=== PATIENT | male | born 1960 | race Caucasian/White ===

== ENCOUNTER 2019-08-01 20:01 | Observation (INO) ==
[2019-08-02 00:21] LABS: Basophils # 0.1 K/mcL (0.0-0.2); Basophils % 2.5 %; Eosinophils # 0.2 K/mcL (0.0-0.6); Eosinophils % 4.6 %; Hematocrit 38.7 % (37.5-50.1); Hemoglobin 12.7 g/dL (12.9-16.9); Immature Granulocytes % 0.4 % (0-4); Lymphocytes # 1.4 K/mcL (0.6-4.6); Lymphocytes % 26.1 %; Mean Corpuscular HGB Conc 32.8 g/dL (31.6-35.5); Mean Corpuscular Hemoglobin 27.6 pg (28.0-33.3); Mean Corpuscular Volume 84.1 fL (83.0-100.0); Mean Platelet Volume 9.2 fL (9.4-12.4); Monocytes # 0.4 K/mcL (0.0-1.3); Monocytes % 7.9 %; Platelet Count 208 K/mcL (140-400); Red Cell Distribution Width 16.3 % (11.5-14.5); Segmented Neutrophils % 58.5 %; White Blood Count 5.2 K/mcL (4.3-11.1)
[2019-08-02 00:23] LABS: Prothrombin Time 11.3 Seconds (9.4-12.1)
[2019-08-02 00:40] LABS: Alanine Aminotransferase 8 Units/L (7-52); Albumin 3.6 g/dL (3.5-5.7); Alkaline Phosphatase 102 Units/L (34-104); Aspartate Amino Transferase 13 Units/L (13-39); BUN/Creatinine Ratio 13 (6-26); Bilirubin,Total 0.6 mg/dL (0.3-1.0); Blood Urea Nitrogen 14 mg/dL (6-20); Calcium 9.4 mg/dL (8.6-10.3); Carbon Dioxide 31 mEq/L (23-29); Chloride 102 mEq/L (98-107); Globulin 3.7 g/dL (2.4-3.5); Glucose 89 mg/dL (70-105); Osmolality,Calculated 286 (280-300); Potassium 4.2 mEq/L (3.5-5.1); Sodium 138 mEq/L (136-145); Total Protein 7.3 g/dL (6.4-8.9); Troponin I < 0.03 ng/mL (< 0.04); eGFR For African Americans > 60 (> 60); eGFR For Non-African Americans > 60 (> 60)
[2019-08-02] MEDS: Nicotine 21 MG PATCH.TD24 TD SCH ×2 (01:07→09:14)
[2019-08-02] MEDS ORDERED: Naloxone 0.4 MG/ML INJ IVP PRN (01:18)
[2019-08-02 01:25] LABS: VBG HCO3 31 mEq/L (21-27); VBG PCO2 52 mmHg (41-51); VBG PH 7.39 pH Units (7.32-7.42); VBG PO2 128 mmHg (25-50)
[2019-08-02] MEDS ORDERED: Gabapentin 300 MG CAPSULE PO SCH (01:37)
[2019-08-02 02:51] LABS: % Iron Saturation 13 % (20-55); BUN/Creatinine Ratio 15 (6-26); Blood Urea Nitrogen 15 mg/dL (6-20); Calcium 8.8 mg/dL (8.6-10.3); Carbon Dioxide 30 mEq/L (23-29); Chloride 102 mEq/L (98-107); Cholesterol 128 mg/dL (< 200); Glucose 121 mg/dL (70-105); HDL Cholesterol 43 mg/dL (40-59); Iron 37 mcg/dL (65-175); LDL Cholesterol,Calculated 77 mg/dL (0-99); Osmolality,Calculated 288 (280-300); Phosphorous 3.9 mg/dL (2.7-4.5); Potassium 3.8 mEq/L (3.5-5.1); Sodium 138 mEq/L (136-145); Transferrin 209 mg/dL (203-362); Triglycerides 39 mg/dL (< 150); Troponin I < 0.03 ng/mL (< 0.04); eGFR For African Americans > 60 (> 60); eGFR For Non-African Americans > 60 (> 60)
[2019-08-02] MEDS: Gabapentin 300 MG CAPSULE PO SCH ×3 (02:52→20:19)
[2019-08-02 03:05] LABS: Basophils # 0.1 K/mcL (0.0-0.2); Basophils % 1.6 %; Eosinophils # 0.3 K/mcL (0.0-0.6); Eosinophils % 5.8 %; Hematocrit 34.2 % (37.5-50.1); Hemoglobin 11.3 g/dL (12.9-16.9); Immature Granulocytes % 0.4 % (0-4); Immature Reticulocyte % 11.5 % (11.0-38.0); Lymphocytes # 1.6 K/mcL (0.6-4.6); Lymphocytes % 27.4 %; Mean Corpuscular Hemoglobin 27.6 pg (28.0-33.3); Mean Corpuscular Volume 83.6 fL (83.0-100.0); Mean Platelet Volume 9.7 fL (9.4-12.4); Monocytes # 0.6 K/mcL (0.0-1.3); Monocytes % 9.7 %; Neutrophils # 3.1 K/mcL (1.6-8.9); Platelet Count 187 K/mcL (140-400); Red Blood Count 4.09 M/mcL (4.19-5.50); Red Cell Distribution Width 16.2 % (11.5-14.5); Retculocyte # 0.03 M/mcL (0.05-0.10); Reticulocyte % 0.8 % (1.6-2.8); Segmented Neutrophils % 55.1 %; White Blood Count 5.7 K/mcL (4.3-11.1)
[2019-08-02 03:10] LABS: Ferritin 93 ng/mL (20-250)
[2019-08-02] MEDS ORDERED: Cefepime HCl 1,000 MG in 0.9 % Sodium Chloride Mini Bag 100 ML IVPB SCH (04:00)
[2019-08-02] MEDS ORDERED: MetroNIDAZOLE 500 MG/100 ML 500 MG/100 ML BAG IVPB SCH (04:00)
[2019-08-02] MEDS ORDERED: Vancomycin (wt based) 1,000 MG VIAL IVPB SCH (04:00)
[2019-08-02] MEDS ORDERED: Cefepime HCl 1,000 MG in Water for inj. (sterile) 10 ML IVPB SCH (04:15)
[2019-08-02 05:42] LABS: Bilirubin,Urine Negative (Negative); Blood,Urine Negative (Negative); Clarity,Urine Clear (Clear); Color,Urine Yellow (Yellow); Glucose,Urine (UA) Normal (Normal); Ketones,Urine Negative (Negative); Leukocyte Esterase,Urine Negative (Negative); Nitrite,Urine Negative (Negative); PH,Urine 7.5 pH Units (5.0-8.0); Protein,Urine Negative (Neg-Trace); Urobilinogen,Urine Normal (Normal)
[2019-08-02] MEDS: *HR* Heparin 5,000 UNIT/ML VIAL SQ SCH ×2 (05:45→18:14)
[2019-08-02] MEDS: Acetaminophen 325 MG TABLET PO PRN (06:42)
[2019-08-02 07:57] LABS: Estimated Average Glucose 123 mg/dl
[2019-08-02 08:04] LABS: Folate 14.4 ng/mL (3.0-16.0)
[2019-08-02] MEDS: Cefepime HCl 1,000 MG in 0.9 % Sodium Chloride Mini Bag 100 ML IVPB SCH ×2 (09:19→15:45)
[2019-08-02] MEDS: MetroNIDAZOLE 500 MG/100 ML 500 MG/100 ML BAG IVPB SCH ×2 (09:21→15:48)
[2019-08-02] MEDS ORDERED: *HR* OxyCODONE Immed Rel 5 MG TABLET PO PRN (11:44)
[2019-08-02] MEDS ORDERED: Ipratropium Neb 0.5 MG NEBULIZER IH PRN (11:44)
[2019-08-02] MEDS ORDERED: Ondansetron 4 MG/2 ML VIAL IVP ONE (11:44)
[2019-08-02] MEDS ORDERED: Albuterol 2.5 MG/3 ML NEBULIZER IH PRN (11:44)
[2019-08-02] MEDS ORDERED: *HR* Rocuronium Bromide 50 MG/5 ML VIAL ONE (11:57)
[2019-08-02] MEDS ORDERED: Ondansetron 4 MG/2 ML VIAL ONE (11:57)
[2019-08-02] MEDS ORDERED: *HR* FentaNYL (PF) 100 MCG/2 ML VIAL ONE (11:57)
[2019-08-02] MEDS ORDERED: *HR* Midazolam HCl 2 MG/2 ML VIAL ONE (11:57)
[2019-08-02] MEDS ORDERED: Dexamethasone 4 MG/ML VIAL ONE (11:57)
[2019-08-02] MEDS ORDERED: Lidocaine -MPF 4% 5 ML AMPUL ONE (11:57)
[2019-08-02] MEDS ORDERED: *HR* Succinylcholine 200 MG/10 ML VIAL IVP ONE (11:57)
[2019-08-02] MEDS ORDERED: Lidocaine -MPF 2% 2 ML VIAL ONE (11:57)
[2019-08-02] MEDS ORDERED: *HR* Propofol 200 MG/20 ML VIAL IVP ONE (11:57)
[2019-08-02] MEDS: *HR* Buprenorphine HCl 2 MG SUBLINGUAL TABLET SL SCH ×2 (15:16→20:20)
[2019-08-02] MEDS ORDERED: Azithromycin 250 MG TABLET PO SCH (17:15)
[2019-08-02 19:52] LABS: Appearance of Body Fluid Cloudy (Clear); Volume of Body Fluid 17 mL
[2019-08-02 20:05] LABS: Appearance of Body Fluid Cloudy (Clear); Volume of Body Fluid 24 mL
[2019-08-02] MEDS: Budesonide/Formoterol 160/4.5 1 PUFF INH IH SCH (22:04)
[2019-08-02] MEDS: Ipratropium/Albuterol Neb 3 ML IH SCH (22:05)
[2019-08-02] MEDS ORDERED: Aminoglycoside Consult 1 EACH MC ONE (22:18)
[2019-08-03] MEDS: Acetaminophen 325 MG TABLET PO PRN (00:03)
[2019-08-03] MEDS: methylPREDNISolone 125 MG/2 ML VIAL IVP SCH ×2 (00:04→08:27)
[2019-08-03] MEDS: Cefepime HCl 1,000 MG in 0.9 % Sodium Chloride Mini Bag 100 ML IVPB SCH ×2 (00:06→10:00)
[2019-08-03] MEDS: MetroNIDAZOLE 500 MG/100 ML 500 MG/100 ML BAG IVPB SCH ×2 (00:50→08:26)
[2019-08-03] MEDS: Ipratropium/Albuterol Neb 3 ML IH SCH ×2 (03:34→10:31)
[2019-08-03 04:11] LABS: Basophils % 0.4 %; Hematocrit 40.7 % (37.5-50.1); Hemoglobin 12.8 g/dL (12.9-16.9); Immature Granulocytes % 0.3 % (0-4); Lymphocytes # 0.8 K/mcL (0.6-4.6); Lymphocytes % 7.4 %; Mean Corpuscular HGB Conc 31.4 g/dL (31.6-35.5); Mean Corpuscular Hemoglobin 27.9 pg (28.0-33.3); Mean Corpuscular Volume 88.9 fL (83.0-100.0); Mean Platelet Volume 9.8 fL (9.4-12.4); Monocytes # 0.1 K/mcL (0.0-1.3); Neutrophils # 9.2 K/mcL (1.6-8.9); Platelet Count 196 K/mcL (140-400); Red Blood Count 4.58 M/mcL (4.19-5.50); Red Cell Distribution Width 15.9 % (11.5-14.5); Segmented Neutrophils % 90.9 %
[2019-08-03 04:32] LABS: BUN/Creatinine Ratio 17 (6-26); Blood Urea Nitrogen 18 mg/dL (6-20); Calcium 9.4 mg/dL (8.6-10.3); Carbon Dioxide 29 mEq/L (23-29); Chloride 104 mEq/L (98-107); Glucose 124 mg/dL (70-105); Osmolality,Calculated 291 (280-300); Sodium 139 mEq/L (136-145); White Blood Count 10.1 K/mcL (4.3-11.1); eGFR For African Americans > 60 (> 60); eGFR For Non-African Americans > 60 (> 60)
[2019-08-03] MEDS: *HR* Heparin 5,000 UNIT/ML VIAL SQ SCH (05:30)
[2019-08-03 07:06] VITALS: BP 118/71
[2019-08-03] MEDS: Gabapentin 300 MG CAPSULE PO SCH (08:28)
[2019-08-03] MEDS: *HR* Buprenorphine HCl 2 MG SUBLINGUAL TABLET SL SCH (08:29)
[2019-08-03] MEDS: Nicotine 21 MG PATCH.TD24 TD SCH (08:29)
[2019-08-03] MEDS ORDERED: Azithromycin 250 MG TABLET PO SCH (09:00)
[2019-08-03] MEDS: Budesonide/Formoterol 160/4.5 1 PUFF INH IH SCH (10:31)
== END 2019-08-03 13:10 | disposition home or self-care (01) ==
LOC: 2ANU → SUATTDRO 22:17
PROVIDERS: ADMIT Internal Medicine; ATTEND Internal Medicine

== ENCOUNTER 2020-12-15 16:30 | Inpatient (IN) ==
[2020-12-15] MEDS ORDERED: *HR* HYDROcodone/Acet 5/325 mg TABLET PO PRN (17:18)
[2020-12-15] MEDS ORDERED: Naloxone 0.4 MG/ML INJ IVP PRN (17:18)
[2020-12-15] MEDS ORDERED: Acetaminophen 325 MG TABLET PO PRN (17:18)
[2020-12-15] MEDS ORDERED: Perflutren Lipid Microsphere 1.3 ML in 0.9 % Sodium Chloride 8.7 ML IVP PRN (17:23)
[2020-12-15] MEDS ORDERED: Azithromycin 500 MG in 0.9 % Sodium Chloride 250 ML IVPB ONE (17:24)
[2020-12-15] MEDS: 0.9 % Sodium Chloride 1,000 ML IVC SCH (17:41)
[2020-12-15] MEDS ORDERED: Amiodarone Premix 360 MG/200 ML BAG IVC ONE ×2 (17:53→19:22)
[2020-12-15] MEDS ORDERED: Levalbuterol Neb 1.25 MG/3 ML IH PRN (17:55)
[2020-12-15] MEDS: cefTRIAXone 2,000 MG in Water for inj. (sterile) 20 ML IVP SCH (17:57)
[2020-12-15] MEDS ORDERED: Vancomycin (wt based) 1,000 MG VIAL IVPB SCH (18:00)
[2020-12-15] MEDS ORDERED: Vancomycin 1,500 MG/265 ML IV.SOLN IVPB ONE (18:11)
[2020-12-15] MEDS ORDERED: *HR* Heparin 5,000 UNIT/ML VIAL IVP PRN ×2 (18:15)
[2020-12-15] MEDS ORDERED: *HR* Heparin 5,000 UNIT/ML VIAL IVP ONE (18:15)
[2020-12-15] MEDS ORDERED: *HR* Metoprolol 5 MG/5 ML VIAL IVP PRN (18:15)
[2020-12-15] MEDS: MethylPREDNISolone 40 MG/ML VIAL IVP SCH (18:17)
[2020-12-15 18:27] LABS: Basophils # 0.1 K/mcL (0.0-0.2); Basophils % 1.4 %; Eosinophils # 0.1 K/mcL (0.0-0.6); Eosinophils % 1.5 %; Hematocrit 36.6 % (37.5-50.1); Hemoglobin 11.7 g/dL (12.9-16.9); Immature Granulocytes % 0.3 % (0-4); Lymphocytes # 0.9 K/mcL (0.6-4.6); Lymphocytes % 13.1 %; Mean Corpuscular Hemoglobin 29.8 pg (28.0-33.3); Mean Corpuscular Volume 93.1 fL (83.0-100.0); Mean Platelet Volume 9.2 fL (9.4-12.4); Monocytes # 0.8 K/mcL (0.0-1.3); Monocytes % 10.7 %; Neutrophils # 5.3 K/mcL (1.6-8.9); Platelet Count 246 K/mcL (140-400); Red Blood Count 3.93 M/mcL (4.19-5.50); Red Cell Distribution Width 13.2 % (11.5-14.5); White Blood Count 7.2 K/mcL (4.3-11.1)
[2020-12-15 18:34] LABS: Heparin anti-factor XA UFH < 0.04 IU/mL (0.30-0.70); INR 1.4; Prothrombin Time 16.2 Seconds (9.4-12.1)
[2020-12-15 18:37] LABS: Activated Partial Thrombo Time 27.1 Seconds (26.0-36.0)
[2020-12-15 18:51] LABS: Alanine Aminotransferase 16 Units/L (7-52); Albumin 3.5 g/dL (3.5-5.7); Albumin/Globulin Ratio 0.9 (1.1-2.2); Alkaline Phosphatase 134 Units/L (34-104); Aspartate Amino Transferase 14 Units/L (13-39); BUN/Creatinine Ratio 11 (6-26); Bilirubin,Direct 0.1 mg/dL (0.0-0.2); Bilirubin,Indirect 0.3 mg/dL (0.0-1.0); Bilirubin,Total 0.4 mg/dL (0.3-1.0); Blood Urea Nitrogen 11 mg/dL (6-20); Calcium 8.8 mg/dL (8.6-10.3); Carbon Dioxide 34 mEq/L (23-29); Chloride 96 mEq/L (98-107); Globulin 3.7 g/dL (2.4-3.5); Glucose 112 mg/dL (70-105); Magnesium 2.1 mg/dL (1.6-2.6); Osmolality,Calculated 284 (280-300); Phosphorous 2.8 mg/dL (2.7-4.5); Potassium 3.3 mEq/L (3.5-5.1); Sodium 137 mEq/L (136-145); Total Protein 7.2 g/dL (6.4-8.9); eGFR For African Americans > 60 (> 60); eGFR For Non-African Americans > 60 (> 60)
[2020-12-15 19:04] LABS: Thyroid Stimulating Hormone 1.136 mcIU/mL (0.340-5.600)
[2020-12-15] MEDS: Amiodarone Premix 360 MG/200 ML BAG IVC SCH (19:16)
[2020-12-15] MEDS: Heparin 25,000UNIT/250ML 1/2NS 25,000 UNIT/250 ML IV.SOLN IVC SCH (19:25)
[2020-12-16] MEDS: 0.9 % Sodium Chloride 1,000 ML IVC SCH (00:13)
[2020-12-16] MEDS ORDERED: Ringers Solution, Lactated 500 ML IVC ONE ×2 (00:50→02:52)
[2020-12-16 01:47] LABS: Basophils % 0.4 %; Hematocrit 41.2 % (37.5-50.1); Hemoglobin 12.9 g/dL (12.9-16.9); Immature Granulocytes % 0.2 % (0-4); Lymphocytes # 0.5 K/mcL (0.6-4.6); Lymphocytes % 6.4 %; Mean Corpuscular HGB Conc 31.3 g/dL (31.6-35.5); Mean Corpuscular Hemoglobin 29.5 pg (28.0-33.3); Mean Corpuscular Volume 94.3 fL (83.0-100.0); Mean Platelet Volume 9.5 fL (9.4-12.4); Monocytes # 0.2 K/mcL (0.0-1.3); Monocytes % 2.5 %; Neutrophils # 7.4 K/mcL (1.6-8.9); Platelet Count 244 K/mcL (140-400); Red Blood Count 4.37 M/mcL (4.19-5.50); Red Cell Distribution Width 13.2 % (11.5-14.5); Segmented Neutrophils % 90.5 %; White Blood Count 8.1 K/mcL (4.3-11.1)
[2020-12-16 01:53] LABS: VBG Ionized Calcium 1.14 mmol/L (1.15-1.35)
[2020-12-16 02:10] LABS: Troponin I < 0.03 ng/mL (< 0.04)
[2020-12-16] MEDS ORDERED: *HR* Metoprolol 5 MG/5 ML VIAL IVP ONE (02:27)
[2020-12-16] MEDS: MethylPREDNISolone 40 MG/ML VIAL IVP SCH ×2 (05:57→18:42)
[2020-12-16] MEDS: Vancomycin 1,500 MG/265 ML IV.SOLN IVPB SCH ×2 (05:57→18:40)
[2020-12-16 05:59] LABS: Alanine Aminotransferase 17 Units/L (7-52); Albumin 3.7 g/dL (3.5-5.7); Albumin/Globulin Ratio 0.9 (1.1-2.2); Alkaline Phosphatase 152 Units/L (34-104); Aspartate Amino Transferase 19 Units/L (13-39); BUN/Creatinine Ratio 12 (6-26); Bilirubin,Total 0.3 mg/dL (0.3-1.0); Blood Urea Nitrogen 12 mg/dL (6-20); Calcium 9.1 mg/dL (8.6-10.3); Chloride 99 mEq/L (98-107); Globulin 4.2 g/dL (2.4-3.5); Glucose 157 mg/dL (70-105); Magnesium 2.2 mg/dL (1.6-2.6); Osmolality,Calculated 287 (280-300); Phosphorous 2.1 mg/dL (2.7-4.5); Potassium 3.4 mEq/L (3.5-5.1); Sodium 137 mEq/L (136-145); Total Protein 7.9 g/dL (6.4-8.9); eGFR For African Americans > 60 (> 60); eGFR For Non-African Americans > 60 (> 60)
[2020-12-16] MEDS: Amiodarone Premix 360 MG/200 ML BAG IVC SCH ×2 (06:14→19:20)
[2020-12-16 06:17] LABS: Carbon Dioxide 26 mEq/L (23-29)
[2020-12-16] MEDS ORDERED: Potassium Chloride Elixir 20 MEQ/15 ML UDC PO ONE (06:27)
[2020-12-16] MEDS ORDERED: *HR* Heparin 5,000 UNIT/ML VIAL SQ SCH (07:00)
[2020-12-16] MEDS: Calcium Gluconate 1gm/50mL 1 GM/50 ML BAG IVPB SCH ×2 (07:45→08:57)
[2020-12-16] MEDS: Gabapentin 300 MG CAPSULE PO SCH ×2 (07:45→21:12)
[2020-12-16] MEDS ORDERED: BUPRENORPHINE HCL SL SCH (09:00)
[2020-12-16] MEDS ORDERED: NALOXONE HCL SL SCH (09:00)
[2020-12-16] MEDS ORDERED: Furosemide 40 MG/4 ML VIAL IVP ONE (09:53)
[2020-12-16] MEDS: *HR* Buprenorphine HCl 8 MG TAB.SUBL SL SCH ×4 (09:58→21:12)
[2020-12-16] MEDS: Pantoprazole 40 MG VIAL IVP SCH ×2 (10:20→21:13)
[2020-12-16] MEDS ORDERED: *HR* Digoxin 0.5 MG/2 ML AMPUL IVP ONE (10:25)
[2020-12-16] MEDS: Nicotine 21 MG PATCH.TD24 TD SCH (11:06)
[2020-12-16] MEDS: Aspirin Enteric Coated 81 MG Tablet PO SCH (11:06)
[2020-12-16] MEDS: Sennosides/Docusate Sodium TABLET PO SCH ×2 (11:07→20:11)
[2020-12-16] MEDS: Heparin 25,000UNIT/250ML 1/2NS 25,000 UNIT/250 ML IV.SOLN IVC SCH (11:10)
[2020-12-16 13:05] LABS: BUN/Creatinine Ratio 12 (6-26); Blood Urea Nitrogen 11 mg/dL (6-20); Calcium 9.7 mg/dL (8.6-10.3); Carbon Dioxide 27 mEq/L (23-29); Chloride 99 mEq/L (98-107); Glucose 136 mg/dL (70-105); Osmolality,Calculated 283 (280-300); Phosphorous 2.6 mg/dL (2.7-4.5); Potassium 3.7 mEq/L (3.5-5.1); Sodium 136 mEq/L (136-145); eGFR For African Americans > 60 (> 60); eGFR For Non-African Americans > 60 (> 60)
[2020-12-16] MEDS: DilTIAZem 50 MG/50 ML IV.SOLN IVC SCH ×3 (15:08→22:04)
[2020-12-16] MEDS: cefTRIAXone 2,000 MG in Water for inj. (sterile) 20 ML IVP SCH (18:40)
[2020-12-16] MEDS: *HR* Digoxin 0.5 MG/2 ML AMPUL IVP SCH (18:42)
[2020-12-16] MEDS ORDERED: Dexmedetomidine HCl 400 MCG/100 ML MLS IVC SCH (19:00)
[2020-12-16] MEDS: Budesonide/Formoterol 160/4.5 1 PUFF INH IH SCH (21:16)
[2020-12-16] MEDS ORDERED: polyethylene glycoL 3350 17 GM POWD.PACK PO PRN (23:59)
[2020-12-17] MEDS: DilTIAZem 50 MG/50 ML IV.SOLN IVC SCH (01:56)
[2020-12-17] MEDS: *HR* Digoxin 0.5 MG/2 ML AMPUL IVP SCH (02:34)
[2020-12-17] MEDS: Heparin 25,000UNIT/250ML 1/2NS 25,000 UNIT/250 ML IV.SOLN IVC SCH ×3 (03:55→22:47)
[2020-12-17 06:09] LABS: BUN/Creatinine Ratio 18 (6-26); Blood Urea Nitrogen 17 mg/dL (6-20); Calcium 8.9 mg/dL (8.6-10.3); Carbon Dioxide 29 mEq/L (23-29); Chloride 101 mEq/L (98-107); Glucose 160 mg/dL (70-105); Osmolality,Calculated 287 (280-300); Sodium 136 mEq/L (136-145); Vancomycin,Trough 16 mcg/mL (5-10); eGFR For African Americans > 60 (> 60); eGFR For Non-African Americans > 60 (> 60)
[2020-12-17] MEDS: MethylPREDNISolone 40 MG/ML VIAL IVP SCH (06:49)
[2020-12-17] MEDS: Budesonide/Formoterol 160/4.5 1 PUFF INH IH SCH ×2 (07:46→19:49)
[2020-12-17] MEDS: *HR* Buprenorphine HCl 8 MG TAB.SUBL SL SCH ×4 (08:13→19:52)
[2020-12-17] MEDS: Aspirin Enteric Coated 81 MG Tablet PO SCH (08:13)
[2020-12-17] MEDS: Gabapentin 300 MG CAPSULE PO SCH ×2 (08:14→19:52)
[2020-12-17] MEDS: Sennosides/Docusate Sodium TABLET PO SCH ×2 (08:14→19:51)
[2020-12-17] MEDS: Pantoprazole 40 MG VIAL IVP SCH ×2 (08:14→19:52)
[2020-12-17] MEDS: Nicotine 21 MG PATCH.TD24 TD SCH (08:14)
[2020-12-17] MEDS: Vancomycin 1,500 MG/265 ML IV.SOLN IVPB SCH (08:16)
[2020-12-17] MEDS: Amiodarone Premix 360 MG/200 ML BAG IVC SCH (08:26)
[2020-12-17] MEDS ORDERED: *HR* Digoxin 0.125 MG TABLET PO SCH (09:00)
[2020-12-17] MEDS ORDERED: *HR* Amiodarone 200 MG TABLET PO SCH (10:00)
[2020-12-17] MEDS: Furosemide 20 MG TABLET PO SCH ×3 (10:09→18:02)
[2020-12-17] MEDS ORDERED: *HR* HYDROcodone/Acet 5/325 mg TABLET PO PRN (10:10)
[2020-12-17] MEDS ORDERED: Acetaminophen 325 MG TABLET PO PRN (10:10)
[2020-12-17] MEDS ORDERED: Naloxone 0.4 MG/ML INJ IVP PRN (10:10)
[2020-12-17] MEDS ORDERED: polyethylene glycoL 3350 17 GM POWD.PACK PO PRN (10:10)
[2020-12-17] MEDS ORDERED: Levalbuterol Neb 1.25 MG/3 ML IH PRN (10:10)
[2020-12-17] MEDS ORDERED: *HR* Heparin 5,000 UNIT/ML VIAL IVP PRN ×2 (10:10)
[2020-12-17] MEDS: *HR* Metoprolol 5 MG/5 ML VIAL IVP PRN (13:10)
[2020-12-17 13:52] LABS: VBG Ionized Calcium 1.16 mmol/L (1.15-1.35)
[2020-12-17] MEDS ORDERED: *HR* Metoprolol 5 MG/5 ML VIAL IVP ONE (14:04)
[2020-12-17 15:01] LABS: BUN/Creatinine Ratio 17 (6-26); Blood Urea Nitrogen 17 mg/dL (6-20); Calcium 9.3 mg/dL (8.6-10.3); Carbon Dioxide 28 mEq/L (23-29); Chloride 98 mEq/L (98-107); Glucose 162 mg/dL (70-105); Magnesium 2.2 mg/dL (1.6-2.6); Osmolality,Calculated 285 (280-300); Phosphorous 3.1 mg/dL (2.7-4.5); Sodium 135 mEq/L (136-145); eGFR For African Americans > 60 (> 60); eGFR For Non-African Americans > 60 (> 60)
[2020-12-17] MEDS: Dexmedetomidine HCl 400 MCG/100 ML MLS IVC SCH ×2 (15:45→18:07)
[2020-12-17] MEDS: *HR* Amiodarone 200 MG TABLET PO SCH (19:52)
[2020-12-18] MEDS: Heparin 25,000UNIT/250ML 1/2NS 25,000 UNIT/250 ML IV.SOLN IVC SCH ×2 (02:21→11:55)
[2020-12-18] MEDS: Dexmedetomidine HCl 400 MCG/100 ML MLS IVC SCH ×2 (03:51→13:46)
[2020-12-18 05:29] LABS: VBG Ionized Calcium 1.16 mmol/L (1.15-1.35)
[2020-12-18 05:53] LABS: Alanine Aminotransferase 14 Units/L (7-52); Albumin/Globulin Ratio 0.9 (1.1-2.2); Alkaline Phosphatase 111 Units/L (34-104); Aspartate Amino Transferase 11 Units/L (13-39); BUN/Creatinine Ratio 20 (6-26); Bilirubin,Total 0.3 mg/dL (0.3-1.0); Blood Urea Nitrogen 21 mg/dL (6-20); Carbon Dioxide 29 mEq/L (23-29); Chloride 103 mEq/L (98-107); Globulin 3.5 g/dL (2.4-3.5); Glucose 148 mg/dL (70-105); Magnesium 2.4 mg/dL (1.6-2.6); Osmolality,Calculated 292 (280-300); Phosphorous 3.5 mg/dL (2.7-4.5); Potassium 4.3 mEq/L (3.5-5.1); Sodium 138 mEq/L (136-145); Total Protein 6.5 g/dL (6.4-8.9); eGFR For African Americans > 60 (> 60); eGFR For Non-African Americans > 60 (> 60)
[2020-12-18] MEDS: Budesonide/Formoterol 160/4.5 1 PUFF INH IH SCH ×2 (07:43→21:15)
[2020-12-18] MEDS: Nicotine 21 MG PATCH.TD24 TD SCH (07:53)
[2020-12-18] MEDS: *HR* Buprenorphine HCl 8 MG TAB.SUBL SL SCH ×4 (07:54→20:47)
[2020-12-18] MEDS: Aspirin Enteric Coated 81 MG Tablet PO SCH (07:54)
[2020-12-18] MEDS: Gabapentin 300 MG CAPSULE PO SCH ×2 (07:54→20:47)
[2020-12-18] MEDS: *HR* Digoxin 0.125 MG TABLET PO SCH (07:54)
[2020-12-18] MEDS: Sennosides/Docusate Sodium TABLET PO SCH ×2 (07:54→20:47)
[2020-12-18] MEDS: MethylPREDNISolone 40 MG/ML VIAL IVP SCH (07:55)
[2020-12-18] MEDS: *HR* Amiodarone 200 MG TABLET PO SCH ×2 (07:55→20:47)
[2020-12-18] MEDS: Pantoprazole 40 MG VIAL IVP SCH ×2 (07:56→20:48)
[2020-12-18] MEDS ORDERED: Perflutren Lipid Microsphere 1.3 ML in 0.9 % Sodium Chloride 8.7 ML IVP PRN (08:37)
[2020-12-18] MEDS: Metoprolol XL (24 HR) Succ 50 MG TAB.ER.24H PO SCH ×2 (11:57→20:47)
[2020-12-18] MEDS: Furosemide 20 MG TABLET PO SCH (17:09)
[2020-12-19] MEDS: Dexmedetomidine HCl 400 MCG/100 ML MLS IVC SCH
[2020-12-19 01:45] LABS: Basophils % 0.1 %; Hematocrit 38.2 % (37.5-50.1); Hemoglobin 12.4 g/dL (12.9-16.9); Immature Granulocytes % 0.3 % (0-4); Lymphocytes # 0.9 K/mcL (0.6-4.6); Lymphocytes % 9.8 %; Mean Corpuscular HGB Conc 32.5 g/dL (31.6-35.5); Mean Corpuscular Hemoglobin 29.5 pg (28.0-33.3); Mean Corpuscular Volume 90.7 fL (83.0-100.0); Mean Platelet Volume 9.8 fL (9.4-12.4); Monocytes # 0.6 K/mcL (0.0-1.3); Monocytes % 7.3 %; Neutrophils # 7.2 K/mcL (1.6-8.9); Platelet Count 234 K/mcL (140-400); Red Blood Count 4.21 M/mcL (4.19-5.50); Segmented Neutrophils % 82.5 %; White Blood Count 8.7 K/mcL (4.3-11.1)
[2020-12-19 01:53] LABS: BUN/Creatinine Ratio 20 (6-26); Blood Urea Nitrogen 21 mg/dL (6-20); Carbon Dioxide 27 mEq/L (23-29); Chloride 101 mEq/L (98-107); Glucose 144 mg/dL (70-105); Magnesium 2.4 mg/dL (1.6-2.6); Osmolality,Calculated 284 (280-300); Potassium 4.6 mEq/L (3.5-5.1); Sodium 134 mEq/L (136-145); eGFR For African Americans > 60 (> 60); eGFR For Non-African Americans > 60 (> 60)
[2020-12-19] MEDS: Heparin 25,000UNIT/250ML 1/2NS 25,000 UNIT/250 ML IV.SOLN IVC SCH ×2 (05:57→20:29)
[2020-12-19] MEDS: Budesonide/Formoterol 160/4.5 1 PUFF INH IH SCH ×2 (07:41→20:09)
[2020-12-19] MEDS: Pantoprazole 40 MG VIAL IVP SCH ×2 (08:11→20:09)
[2020-12-19] MEDS: Metoprolol XL (24 HR) Succ 50 MG TAB.ER.24H PO SCH ×2 (08:12→19:53)
[2020-12-19] MEDS: *HR* Amiodarone 200 MG TABLET PO SCH ×2 (08:12→19:56)
[2020-12-19] MEDS: MethylPREDNISolone 40 MG/ML VIAL IVP SCH (08:12)
[2020-12-19] MEDS: Sennosides/Docusate Sodium TABLET PO SCH ×2 (08:12→19:53)
[2020-12-19] MEDS: Aspirin Enteric Coated 81 MG Tablet PO SCH (08:12)
[2020-12-19] MEDS: Furosemide 20 MG TABLET PO SCH ×2 (08:12→16:50)
[2020-12-19] MEDS: *HR* Digoxin 0.125 MG TABLET PO SCH (08:12)
[2020-12-19] MEDS: Gabapentin 300 MG CAPSULE PO SCH ×2 (08:12→19:54)
[2020-12-19] MEDS: Nicotine 21 MG PATCH.TD24 TD SCH (08:13)
[2020-12-19] MEDS: *HR* Buprenorphine HCl 8 MG TAB.SUBL SL SCH (08:13)
[2020-12-19] MEDS: *HR* Buprenorphine HCl 2 MG SUBLINGUAL TABLET SL SCH ×3 (13:22→19:52)
[2020-12-19] MEDS: *HR* Metoprolol 5 MG/5 ML VIAL IVP PRN ×4 (15:01→20:35)
[2020-12-19] MEDS ORDERED: Amiodarone Premix 360 MG/200 ML BAG IVC ONE (15:20)
[2020-12-19] MEDS ORDERED: *HR* Metoprolol 5 MG/5 ML VIAL IVP PRN (20:18)
[2020-12-19] MEDS: Amiodarone Premix 360 MG/200 ML BAG IVC SCH (21:25)
[2020-12-20] MEDS ORDERED: Metoprolol XL (24 HR) Succ 50 MG TAB.ER.24H PO ONE (00:54)
[2020-12-20 06:46] LABS: Basophils % 0.3 %; Eosinophils % 0.2 %; Hematocrit 43.2 % (37.5-50.1); Hemoglobin 13.8 g/dL (12.9-16.9); Immature Granulocytes % 0.4 % (0-4); Lymphocytes # 1.6 K/mcL (0.6-4.6); Lymphocytes % 18.1 %; Mean Corpuscular HGB Conc 31.9 g/dL (31.6-35.5); Mean Corpuscular Hemoglobin 29.6 pg (28.0-33.3); Mean Corpuscular Volume 92.5 fL (83.0-100.0); Mean Platelet Volume 10.6 fL (9.4-12.4); Monocytes # 0.9 K/mcL (0.0-1.3); Monocytes % 10.3 %; Neutrophils # 6.4 K/mcL (1.6-8.9); Platelet Count 205 K/mcL (140-400); Red Blood Count 4.67 M/mcL (4.19-5.50); Red Cell Distribution Width 13.2 % (11.5-14.5); Segmented Neutrophils % 70.7 %; White Blood Count 9.1 K/mcL (4.3-11.1)
[2020-12-20 07:05] LABS: BUN/Creatinine Ratio 19 (6-26); Blood Urea Nitrogen 23 mg/dL (6-20); Calcium 9.4 mg/dL (8.6-10.3); Carbon Dioxide 31 mEq/L (23-29); Chloride 100 mEq/L (98-107); Digoxin 0.8 ng/mL (0.8-2.0); Glucose 94 mg/dL (70-105); Magnesium 2.5 mg/dL (1.6-2.6); Osmolality,Calculated 289 (280-300); Potassium 4.3 mEq/L (3.5-5.1); Sodium 138 mEq/L (136-145); eGFR For African Americans > 60 (> 60); eGFR For Non-African Americans > 60 (> 60)
[2020-12-20] MEDS: Budesonide/Formoterol 160/4.5 1 PUFF INH IH SCH ×2 (07:38→20:17)
[2020-12-20] MEDS: Gabapentin 300 MG CAPSULE PO SCH ×2 (07:45→20:48)
[2020-12-20] MEDS: Aspirin Enteric Coated 81 MG Tablet PO SCH (07:45)
[2020-12-20] MEDS: *HR* Digoxin 0.125 MG TABLET PO SCH (07:45)
[2020-12-20] MEDS: Sennosides/Docusate Sodium TABLET PO SCH ×2 (07:45→20:46)
[2020-12-20] MEDS: Furosemide 20 MG TABLET PO SCH ×2 (07:45→16:48)
[2020-12-20] MEDS: *HR* Buprenorphine HCl 2 MG SUBLINGUAL TABLET SL SCH ×4 (07:46→20:48)
[2020-12-20] MEDS: *HR* Amiodarone 200 MG TABLET PO SCH ×2 (07:46→20:46)
[2020-12-20] MEDS: Metoprolol XL (24 HR) Succ 50 MG TAB.ER.24H PO SCH ×2 (07:46→20:47)
[2020-12-20] MEDS: predniSONE 20 MG TABLET PO SCH (07:46)
[2020-12-20] MEDS: Nicotine 21 MG PATCH.TD24 TD SCH (07:47)
[2020-12-20] MEDS: Amiodarone Premix 360 MG/200 ML BAG IVC SCH (09:17)
[2020-12-20] MEDS: Heparin 25,000UNIT/250ML 1/2NS 25,000 UNIT/250 ML IV.SOLN IVC SCH (12:43)
[2020-12-20] MEDS ORDERED: 0.9 % Sodium Chloride 500 ML IVC ONE (13:27)
[2020-12-20] MEDS ORDERED: Lidocaine Viscous Oral Soln 15 ML SOLUTION MM PRN (13:27)
[2020-12-20] MEDS: *HR* Midazolam HCl 5 MG/5 ML VIAL IVP PRN ×3 (13:50→14:00)
[2020-12-20] MEDS: *HR* FentaNYL (PF) 100 MCG/2 ML VIAL IVP PRN ×2 (13:50→14:00)
[2020-12-21 01:45] LABS: BUN/Creatinine Ratio 20 (6-26); Blood Urea Nitrogen 24 mg/dL (6-20); Calcium 9.7 mg/dL (8.6-10.3); Carbon Dioxide 33 mEq/L (23-29); Chloride 96 mEq/L (98-107); Glucose 99 mg/dL (70-105); Osmolality,Calculated 286 (280-300); Potassium 4.3 mEq/L (3.5-5.1); Sodium 136 mEq/L (136-145); eGFR For African Americans > 60 (> 60); eGFR For Non-African Americans > 60 (> 60)
[2020-12-21] MEDS: Budesonide/Formoterol 160/4.5 1 PUFF INH IH SCH (07:40)
[2020-12-21] MEDS: Heparin 25,000UNIT/250ML 1/2NS 25,000 UNIT/250 ML IV.SOLN IVC SCH (08:42)
[2020-12-21] MEDS: Gabapentin 300 MG CAPSULE PO SCH (08:44)
[2020-12-21] MEDS: *HR* Digoxin 0.125 MG TABLET PO SCH (08:44)
[2020-12-21] MEDS: *HR* Buprenorphine HCl 2 MG SUBLINGUAL TABLET SL SCH (08:44)
[2020-12-21] MEDS: Metoprolol XL (24 HR) Succ 50 MG TAB.ER.24H PO SCH (08:44)
[2020-12-21] MEDS: predniSONE 20 MG TABLET PO SCH (08:44)
[2020-12-21] MEDS: Nicotine 21 MG PATCH.TD24 TD SCH (08:45)
[2020-12-21] MEDS: *HR* Amiodarone 200 MG TABLET PO SCH (08:45)
[2020-12-21] MEDS: Furosemide 20 MG TABLET PO SCH (08:45)
[2020-12-21] MEDS: Aspirin Enteric Coated 81 MG Tablet PO SCH (08:45)
[2020-12-21] MEDS: Sennosides/Docusate Sodium TABLET PO SCH (08:45)
[2020-12-21] MEDS ORDERED: lisinopriL 5 MG TABLET PO SCH (09:45)
[2020-12-21] MEDS ORDERED: *HR* Rivaroxaban 10 MG TABLET PO ONE ×2 (10:47→10:50)
[2020-12-21 11:34] VITALS: BP 109/70
[2020-12-22] MEDS ORDERED: *HR* Amiodarone 200 MG TABLET PO SCH (09:00)
== END 2020-12-21 13:04 | disposition home or self-care (01) | DRG 201 ==
LOC: SUATTDRO 17:12 → ICNU 17:12 → 2NNU 12-18 21:35
PROVIDERS: ADMIT Pediatrics; ATTEND Internal Medicine